=== PATIENT | male | born 1980 | race African-American/Black ===

== ENCOUNTER 2017-09-07 14:06 | Emergency (ER) | payer OTHER ==
[2017-09-07 15:03] LABS: ADD MAN DIFF? NO
[2017-09-07 15:05] LABS: BASO % 1 % (0-3); EOS % 0 % (0-3); HEMATOCRIT 44.1 % (39.0-53.0); HEMOGLOBIN 15.1 g/dL (13.0-17.5); LYMPH # 1.6 x10^3/uL (1.0-4.8); LYMPH % 48 % (24-48); MEAN CORPUSCULAR HEMOGLOBIN 32 pg (25-35); MEAN CORPUSCULAR HGB CONC 34 g/dL (31-37); MEAN CORPUSCULAR VOLUME 92 fL (79-100); MONO # 0.3 x10^3/uL (0.0-1.1); MONO % 9 % (0-9); NEUT # 1.5 x10^3uL (1.8-7.7); NEUT % 43 % (31-73); PLATELET COUNT 192 x10^3/uL (140-400); RED BLOOD COUNT 4.78 x10^6/uL (4.30-5.70); RED CELL DISTRIBUTION WIDTH 12.7 % (11.5-14.5); WHITE BLOOD COUNT 3.4 x10^3/uL (4.0-11.0)
[2017-09-07 15:07] LABS: BILIRUBIN,URINE NEGATIVE (NEG); CLARITY,URINE CLEAR; COLOR,URINE YELLOW; GLUCOSE,URINE NEGATIVE (NEG); NITRITE,URINE NEGATIVE (NEG); PROTEIN,URINE NEGATIVE (NEG-TRACE)
[2017-09-07 15:27] LABS: BACTERIA,URINE 0 /HPF (0-FEW); RBC,URINE 0 /HPF (0-2); SQUAMOUS EPITHELIAL CELL,UR OCC /LPF; WBC,URINE OCC /HPF (0-4)
[2017-09-07 15:28] LABS: ANION GAP 12 (6-14); BLOOD UREA NITROGEN 16 mg/dL (8-26); BUN/CREATININE RATIO 12 (6-20); CALCIUM 8.8 mg/dL (8.5-10.1); CARBON DIOXIDE 28 mmol/L (21-32); CHLORIDE 105 mmol/L (98-107); CREATININE 1.3 mg/dL (0.7-1.3); GFR 61.5; GLUCOSE 95 mg/dL (70-99); SODIUM 145 mmol/L (136-145)
[2017-09-07] MEDS ORDERED: CONTRAST GIVEN MC (15:30)
[2017-09-07] MEDS: IOHEXOL 300 MG/ML 100ML VIAL. IV (15:30)
[2017-09-07 15:34] LABS: ALBUMIN 4.1 g/dL (3.4-5.0); ALBUMIN/GLOBULIN RATIO 1.2 (1.0-1.7); ALK PHOS 61 U/L (46-116); ALT (SGPT) 58 U/L (16-63); AST (SGOT) 31 U/L (15-37); TOTAL BILIRUBIN 0.5 mg/dL (0.2-1.0); TOTAL PROTEIN 7.4 g/dL (6.4-8.2)
[2017-09-07] MEDS ORDERED: AZITHROMYCIN 250 MG TABLET. PO (16:30)
[2017-09-07] MEDS ORDERED: metroNIDAZOLE 500 MG TABLET PO (16:30)
[2017-09-07] MEDS: DOXYCYCLINE HYCLATE 100 MG TABLET PO (17:15)
[2017-09-07] MEDS: ONDANSETRON PF 4 MG/2 ML VIAL. IV (17:17)
[2017-09-07] MEDS: MORPHINE SULFATE 4 MG/ML DISP.SYRIN. IV (17:18)
== END 2017-09-07 17:36 | disposition home or self-care (01) ==
LOC: ER 14:06
DX: N45.1 Epididymitis (principal)
CPT/HCPCS: 36415; 74177; 76870; 80053; 81001; 85025; 96365; 96375; 99285-25; J0690; J2270; J2405; Q9967